=== PATIENT | male | born 1950 | race Caucasian/White ===

== ENCOUNTER 2020-12-08 09:56 | Day surgery (SDC) | payer MEDICARE, MEDICAID ==
[~2020-12-08 09:56] MED LIST: Lactated Ringers 1,000 ML IV SCH
[2020-12-08] MEDS ORDERED: Propofol 200 MG/20 ML SDV ONE ×3 (12:27→13:46)
--- NOTE | 2020-12-09 09:39 | OR ---
DATE OF SURGERY: 12/08/2020 REFERRING PROVIDER: Pavithra Lamb DO PRE-OPERATIVE DIAGNOSIS: Positive fecal immunochemical test stool card. The patient states his last colonoscopy was around age 52. He is unsure if he has been doing stool cards in between now and then. He is a resident at [facility] and has a guardian. The guardian was spoken to on the phone to obtain consent and then also updated after the procedure. POST-OPERATIVE DIAGNOSES: 1. A total of 7 polyps were removed. a. A 2 mm cecal polyp was removed using cold forceps. b. A 6 mm polyp at 80 cm was removed using cold snare initially and then the base of the polypectomy site cauterized using the tip of the hot snare. c. 8 mm and 5 mm smooth benign-appearing "polyps." These were removed using cold snare. These appeared to be non-polypoid cyst-like areas versus lipomas. d. 3 mm rectal polyps x3, all removed using cold forceps. 2. Right colon contained several collections of the non-polypoid cyst-like versus lipomatous lumps. These were smooth in nature and did not appear to be polypoid under narrow band imaging. Two of these came off very easily with the cold snare (see above). PROCEDURE: Colonoscopy with polypectomy x7 (4 using cold forceps, 1 using hot snare, and 2 using cold snare). SURGEON: Joselito Laguna M.D. ANESTHESIA: Monitored anesthesia care. BOWEL PREP: Good. Paul is a 70-year-old male, was brought to the endoscopy suite after discussing risks and benefits of the procedure. Informed consent was obtained for conscious sedation and colonoscopy with or without biopsy and/or polypectomy. We also discussed possibility of missed lesions. Pre-procedure exam was unremarkable. IV, oxygen, and monitors were placed. The patient was placed in the left lateral decubitus position. Sedation was administered and a digital rectal exam was performed which was unremarkable. Colonoscope was passed into the rectum and slowly advanced all the way to the cecum. Cecum was viewed and photographed. There was a 2 mm cecal polyp removed using cold forceps. The colonoscope was slowly withdrawn and the mucosa was closed observed in a direct circumferential manner. The ascending colon was remarkable for a 6 mm polyp near the entry to the cecum at about 80 cm. This was initially removed using cold snare and then the tip of the hot snare used to cauterize the base. The ascending colon also revealed several collections of cyst-like smooth lumps versus lipomas. These appeared non polypoid under narrow band imaging. Two of these were removed as noted above, one being 8 mm and one being 5 mm in size. The superficial mucosa came off easily with the cold snare without much resistance. The transverse colon was unremarkable. The descending colon was unremarkable. The sigmoid colon was unremarkable. The rectal mucosa did reveal several hyperplastic-appearing polyps. Cold forceps was used to remove 3 separate 3 mm rectal polyps. Retroflexion was performed and rectal mucosa was otherwise unremarkable. Scope was removed. The patient tolerated the procedure well. The patient was monitored until that baseline status. Discharge instructions were reviewed and the patient was discharged in good condition. COMPLICATIONS: None. TOTAL TIME: 35 minutes. ESTIMATED BLOOD LOSS: About 2 mL. RECOMMENDATIONS/FOLLOWUP: We will await the results of the path report to determine the ideal followup interval. I would like the patient to hold his aspirin for 3 days to eliminate any chance of bleeding as he did bleed somewhat easily from the polypectomy sites. I would like to kindly thank Dr. Pavithra Lamb for this referral. DMB: 12/08/2020 15:37:45 MODL: 12/08/2020 22:33:03 /[id number]
== END 2020-12-08 14:35 | disposition home or self-care (01) ==
LOC: VM.SDS 09:56
PROVIDERS: ATTEND Family Medicine
DX: D12.0 Benign neoplasm of cecum (principal); K62.1 Rectal polyp; K51.40 Inflammatory polyps of colon without complications; K63.89 Other specified diseases of intestine; E11.22 Type 2 diabetes mellitus with diabetic chronic kidney disease; N18.5 Chronic kidney disease, stage 5; E78.00 Pure hypercholesterolemia, unspecified; E03.9 Hypothyroidism, unspecified; F31.9 Bipolar disorder, unspecified; G20 Parkinson's disease; E78.5 Hyperlipidemia, unspecified; Z79.899 Other long term (current) drug therapy; Z88.8 Allergy status to other drugs, medicaments and biological substances; Z87.891 Personal history of nicotine dependence; Z98.890 Other specified postprocedural states
CPT/HCPCS: 00812; 88305; J2704; J7120

== ENCOUNTER 2023-07-09 17:35 | Emergency (ER) | payer MEDICARE, MEDICAID ==
[2023-07-09] MEDS ORDERED: Iopamidol 612 MG/ML 100 ML Bottle IVPUSH ONE (18:04)
[2023-07-09] MEDS ORDERED: Sodium Chloride 0.9% 1,000 ML IV ONE (18:07)
[2023-07-09 20:54] LABS: INR 1.1 (0.9-1.1); PROTHROMBIN TIME 11.6 SEC (9.5-12.2); PTT,PARTIAL THROMBOPLSTIN TIME 23.6 SEC (23.6-33.6)
[2023-07-09] MEDS ORDERED: Enoxaparin 80 MG/0.8 ML Syringe SUBCUT SCH (21:00)
== END 2023-07-09 22:15 | disposition home or self-care (01) ==
LOC: VM.ED 17:35
DX: K86.89 Other specified diseases of pancreas (principal); I10 Essential (primary) hypertension; E78.00 Pure hypercholesterolemia, unspecified; E11.9 Type 2 diabetes mellitus without complications; Z87.891 Personal history of nicotine dependence; Z90.49 Acquired absence of other specified parts of digestive tract; Z88.6 Allergy status to analgesic agent; Z88.8 Allergy status to other drugs, medicaments and biological substances; Z79.899 Other long term (current) drug therapy
CPT/HCPCS: 71260; 74177; 83690; 85610; 85730; 96360; 96372; 99284; 99285-25; J1650; J7030; Q9967